=== PATIENT | male | born 1980 | race Caucasian/White ===

== ENCOUNTER 2021-12-22 12:02 | Inpatient (IN) | payer OTHER ==
[2021-12-22 13:04] VITALS: BMI 30.5
[2021-12-22] MEDS ORDERED: ONDANSETRON *ODT* 4 MG TABLET SL PRN (13:16)
[2021-12-22] MEDS ORDERED: MAGNESIUM HYDROX 2400MG/30ML ORAL SUSPENSION 30 ML CUP PO PRN (13:16)
[2021-12-22] MEDS ORDERED: ACETAMINOPHEN 325 MG TABLET (FP) PO PRN ×2 (13:16)
[2021-12-22] MEDS ORDERED: MAG HYDROX/AL HYDROX/SIMETH 30 ML UNIT-DOSE CUP PO PRN (13:16)
[2021-12-22] MEDS ORDERED: METHOCARBAMOL 500 MG TABLET PO PRN (13:16)
[2021-12-22] MEDS ORDERED: MENTHOL/PHENOL 1 EACH UD MM PRN (13:16)
[2021-12-22] MEDS ORDERED: LOPERAMIDE HCL 2 MG CAPSULE PO PRN (13:16)
[2021-12-22] MEDS ORDERED: NICOTINE 10 MG CARTRIDGE (INHALER) IH PRN (13:16)
[2021-12-22] MEDS ORDERED: DICYCLOMINE HCL 10 MG CAPSULE PO PRN (13:16)
[2021-12-22] MEDS ORDERED: IBUPROFEN 400 MG TABLET (FP) PO PRN (13:16)
[2021-12-22] MEDS ORDERED: BISMUTH SUBSALICYLATE 524 MG/30 ML PO PRN (13:16)
[2021-12-22] MEDS ORDERED: MAGNESIUM CITRATE 300 ML BOTTLE PO PRN (13:16)
[2021-12-22] MEDS: NICOTINE 14 MG/24 HOURS TOPICAL PATCH TD SCH (14:18)
[2021-12-22] MEDS: PRENATAL VITAMINS W/ FOLIC ACID TABLET (FP) PO SCH (14:18)
[2021-12-22] MEDS: hydrOXYzine PAMOATE 25 MG CAPSULE (FP) PO SCH ×3 (14:18→22:17)
[2021-12-22] MEDS: diazePAM 5 MG TABLET PO SCH ×2 (17:38→22:17)
[2021-12-22 19:51] LABS: ALBUMIN 3.8 g/dl (3.4-5.0)
[2021-12-22 19:52] LABS: BLOOD UREA NITROGEN 15.6 mg/dL (7-18)
[2021-12-22 19:54] LABS: CREATININE 0.8 mg/dL (0.55-1.3)
[2021-12-22 19:56] LABS: BILIRUBIN,TOTAL 0.8 mg/dL (0.2-1)
[2021-12-22 19:57] LABS: HEMATOCRIT 38.5 % (35.4-49); HEMOGLOBIN 12.6 GM/dL (11.7-16.9); MCH 28.7 pg (25.7-33.7); MCHC 32.7 g/dl (32.0-35.9); MEAN CELL VOLUME 87.7 fl (80-96); MEAN PLT VOLUME 11.9 fl (7.5-11.1); RBC 4.39 M/mm3 (4.00-5.60); RDW 14.3 % (11.9-15.9); WHITE BLOOD COUNT 7.1 K/mm3 (4.0-10.0)
[2021-12-22 19:58] LABS: TOT PROT 7.3 g/dl (6.4-8.2)
[2021-12-22 21:37] LABS: PLATELET COUNT 128 10^3/uL (134-434)
[2021-12-22] MEDS: THIAMINE HCL 100 MG TABLET (FP) PO SCH (22:17)
[2021-12-22] MEDS: MELATONIN 5 MG TABLETS PO SCH (22:17)
[2021-12-23] MEDS: diazePAM 5 MG TABLET PO SCH ×4 (05:31→22:08)
[2021-12-23] MEDS: hydrOXYzine PAMOATE 25 MG CAPSULE (FP) PO SCH ×5 (05:31→22:08)
[2021-12-23] MEDS ORDERED: methaDONE HCL 10 MG TABLET PO SCH (10:00)
[2021-12-23] MEDS: PRENATAL VITAMINS W/ FOLIC ACID TABLET (FP) PO SCH (10:16)
[2021-12-23] MEDS: NICOTINE 14 MG/24 HOURS TOPICAL PATCH TD SCH (10:16)
[2021-12-23] MEDS ORDERED: methaDONE HCL 10 MG TABLET ONE (10:47)
[2021-12-23] MEDS ORDERED: methaDONE HCL 40 MG DISPERSABLE TABLET ONE (10:47)
[2021-12-23] MEDS: methaDONE 40 MG, methaDONE 20 MG PO SCH (10:59)
[2021-12-23] MEDS: THIAMINE HCL 100 MG TABLET (FP) PO SCH (22:08)
[2021-12-23] MEDS: MELATONIN 5 MG TABLETS PO SCH (22:08)
[2021-12-24] MEDS ORDERED: methaDONE HCL 10 MG TABLET ONE (03:50)
[2021-12-24] MEDS ORDERED: methaDONE HCL 40 MG DISPERSABLE TABLET ONE (03:50)
[2021-12-24] MEDS: hydrOXYzine PAMOATE 25 MG CAPSULE (FP) PO SCH ×5 (05:24→22:29)
[2021-12-24] MEDS: diazePAM 5 MG TABLET PO SCH ×3 (05:25→22:30)
[2021-12-24] MEDS: methaDONE 40 MG, methaDONE 20 MG PO SCH (05:25)
[2021-12-24] MEDS: diazePAM 5 MG TABLET PO PRN (10:15)
[2021-12-24] MEDS: PRENATAL VITAMINS W/ FOLIC ACID TABLET (FP) PO SCH (10:15)
[2021-12-24] MEDS: NICOTINE 14 MG/24 HOURS TOPICAL PATCH TD SCH (10:16)
[2021-12-24 12:44] LABS: GLUCOSE,FASTING 98 mg/dL (74-106)
[2021-12-24 12:46] LABS: SGOT/AST 22 U/L (15-37)
[2021-12-24] MEDS: MELATONIN 5 MG TABLETS PO SCH (22:29)
[2021-12-24] MEDS: THIAMINE HCL 100 MG TABLET (FP) PO SCH (22:29)
[2021-12-25 00:07] LABS: SARS-CoV-2 NAA Not Detected (Not Detected)
[2021-12-25] MEDS ORDERED: methaDONE HCL 10 MG TABLET ONE (04:17)
[2021-12-25] MEDS ORDERED: methaDONE HCL 40 MG DISPERSABLE TABLET ONE (04:18)
[2021-12-25] MEDS: methaDONE 40 MG, methaDONE 20 MG PO SCH (05:12)
[2021-12-25] MEDS: diazePAM 5 MG TABLET PO SCH ×2 (05:13→17:50)
[2021-12-25] MEDS: hydrOXYzine PAMOATE 25 MG CAPSULE (FP) PO SCH ×5 (05:13→22:15)
[2021-12-25] MEDS: PRENATAL VITAMINS W/ FOLIC ACID TABLET (FP) PO SCH (10:09)
[2021-12-25] MEDS: NICOTINE 14 MG/24 HOURS TOPICAL PATCH TD SCH (10:10)
[2021-12-25] MEDS: diazePAM 5 MG TABLET PO PRN (10:11)
[2021-12-25] MEDS: MELATONIN 5 MG TABLETS PO SCH (22:15)
[2021-12-25] MEDS: THIAMINE HCL 100 MG TABLET (FP) PO SCH (22:15)
[2021-12-26] MEDS ORDERED: methaDONE HCL 10 MG TABLET ONE (04:35)
[2021-12-26] MEDS ORDERED: methaDONE HCL 40 MG DISPERSABLE TABLET ONE (04:36)
[2021-12-26] MEDS: hydrOXYzine PAMOATE 25 MG CAPSULE (FP) PO SCH (05:26)
[2021-12-26] MEDS: methaDONE 40 MG, methaDONE 20 MG PO SCH (05:27)
[2021-12-26] MEDS ORDERED: diazePAM 5 MG TABLET PO ONE (06:00)
[2021-12-26 09:07] VITALS: BP 120/58; PULSE 82; TEMP 97.7
== END 2021-12-26 09:30 | disposition home or self-care (01) | DRG 773 ==
LOC: YASAS 12:02 → Y3N 13:33
PROVIDERS: ADMIT Allergy & Immunology; ATTEND Allergy & Immunology
PROC: HZ2ZZZZ Detoxification Services for Substance Abuse Treatment (ICD-10-PCS; principal; 2021-12-22)
DX: F13.230 Sedative, hypnotic or anxiolytic dependence with withdrawal, uncomplicated (principal); F11.20 Opioid dependence, uncomplicated; F17.210 Nicotine dependence, cigarettes, uncomplicated; F41.9 Anxiety disorder, unspecified; F32.A Depression, unspecified; B18.2 Chronic viral hepatitis C; R73.9 Hyperglycemia, unspecified; Z56.0 Unemployment, unspecified; Z59.01 Sheltered homelessness
CPT/HCPCS: 36415; 80053; 82947; 83036; 84450; 85027; 86780; 93005; 93010; C9803-CS; U0003; U0005

== ENCOUNTER 2022-11-23 19:46 | Inpatient (IN) | payer OTHER ==
[2022-11-23 20:55] VITALS: BMI 31.5
[2022-11-23] MEDS ORDERED: LOPERAMIDE HCL 2 MG CAPSULE PO PRN (21:38)
[2022-11-23] MEDS ORDERED: IBUPROFEN 400 MG TABLET (FP) PO PRN (21:38)
[2022-11-23] MEDS ORDERED: NALOXONE HCL (KLOXXADO) 8 MG SPRAY NS PRN (21:38)
[2022-11-23] MEDS ORDERED: MAGNESIUM HYDROX 2400MG/30ML ORAL SUSPENSION 30 ML CUP PO PRN (21:38)
[2022-11-23] MEDS ORDERED: DICYCLOMINE HCL 10 MG CAPSULE PO PRN (21:38)
[2022-11-23] MEDS ORDERED: NICOTINE POLACRILEX 2 MG GUM BUC PRN (21:38)
[2022-11-23] MEDS ORDERED: IBUPROFEN 600 MG TABLET (FP) PO PRN (21:38)
[2022-11-23] MEDS ORDERED: BISMUTH SUBSALICYLATE 524 MG/30 ML PO PRN (21:38)
[2022-11-23] MEDS ORDERED: ONDANSETRON *ODT* 4 MG TABLET SL PRN (21:38)
[2022-11-23] MEDS ORDERED: BENZOCAINE/MENTHOL (CHLORASEPTIC ) LOZENGE MM PRN (21:38)
[2022-11-23] MEDS ORDERED: MAG HYDROX/AL HYDROX/SIMETH 30 ML UNIT-DOSE CUP PO PRN (21:38)
[2022-11-23] MEDS ORDERED: POLYETHYLENE GLYCOL (HEALTHYLAX) 3350 17 GM PACKET PO PRN (21:38)
[2022-11-23] MEDS ORDERED: ACETAMINOPHEN 325 MG TABLET (FP) PO PRN ×2 (21:38)
[2022-11-23] MEDS ORDERED: MELATONIN 5 MG TABLETS ONE (23:07)
[2022-11-23] MEDS: THIAMINE HCL 100 MG TABLET (FP) PO SCH (23:10)
[2022-11-23] MEDS: MELATONIN 5 MG TABLETS PO SCH (23:10)
[2022-11-24] MEDS ORDERED: diazePAM 5 MG TABLET PO PRN (00:22)
[2022-11-24] MEDS: diazePAM 5 MG TABLET PO SCH ×4 (06:00→22:55)
[2022-11-24] MEDS ORDERED: methaDONE HCL 10 MG TABLET PO SCH (09:15)
[2022-11-24] MEDS: methaDONE 80 MG, methaDONE 20 MG PO SCH (09:47)
[2022-11-24] MEDS: PRENATAL VITAMINS W/ FOLIC ACID TABLET (FP) PO SCH (09:52)
[2022-11-24] MEDS: NICOTINE 14 MG/24 HOURS TOPICAL PATCH TD SCH (09:52)
[2022-11-24 11:34] LABS: ALBUMIN 3.6 g/dl (3.4-5.0); BLOOD UREA NITROGEN 21.5 mg/dL (7-18); CALCIUM 9.4 mg/dL (8.5-10.1)
[2022-11-24 11:37] LABS: CREATININE 0.9 mg/dL (0.55-1.3)
[2022-11-24 11:39] LABS: BILIRUBIN,TOTAL 0.4 mg/dL (0.2-1); TOT PROT 7.1 g/dl (6.4-8.2)
[2022-11-24 11:44] LABS: HEMATOCRIT 40.5 % (35.4-49); HEMOGLOBIN 13.5 GM/dL (11.7-16.9); MCH 28.5 pg (25.7-33.7); MCHC 33.3 g/dl (32.0-35.9); MEAN CELL VOLUME 85.6 fl (80-96); MEAN PLT VOLUME 10.2 fl (7.5-11.1); PLATELET COUNT 216 10^3/uL (134-434); RBC 4.73 M/mm3 (4.00-5.60); RDW 14.6 % (11.9-15.9); WHITE BLOOD COUNT 7.1 K/mm3 (4.0-10.0)
[2022-11-24] MEDS: THIAMINE HCL 100 MG TABLET (FP) PO SCH (23:03)
[2022-11-24] MEDS: MELATONIN 5 MG TABLETS PO SCH (23:03)
[2022-11-25] MEDS: methaDONE 80 MG, methaDONE 20 MG PO SCH (06:00)
[2022-11-25] MEDS: diazePAM 5 MG TABLET PO SCH ×3 (06:00→22:34)
[2022-11-25] MEDS: PRENATAL VITAMINS W/ FOLIC ACID TABLET (FP) PO SCH (10:57)
[2022-11-25] MEDS: NICOTINE 14 MG/24 HOURS TOPICAL PATCH TD SCH (10:57)
[2022-11-25] MEDS: THIAMINE HCL 100 MG TABLET (FP) PO SCH (22:34)
[2022-11-25] MEDS: MELATONIN 5 MG TABLETS PO SCH (22:34)
[2022-11-26] MEDS: diazePAM 5 MG TABLET PO SCH ×2 (06:24→17:55)
[2022-11-26] MEDS: methaDONE 80 MG, methaDONE 20 MG PO SCH (06:24)
[2022-11-26] MEDS: PRENATAL VITAMINS W/ FOLIC ACID TABLET (FP) PO SCH (09:41)
[2022-11-26] MEDS: NICOTINE 14 MG/24 HOURS TOPICAL PATCH TD SCH (09:42)
[2022-11-26] MEDS: THIAMINE HCL 100 MG TABLET (FP) PO SCH (23:14)
[2022-11-26] MEDS: MELATONIN 5 MG TABLETS PO SCH (23:14)
[2022-11-27] MEDS ORDERED: diazePAM 5 MG TABLET PO ONE (06:00)
[2022-11-27] MEDS: methaDONE 80 MG, methaDONE 20 MG PO SCH (06:02)
[2022-11-27] MEDS: PRENATAL VITAMINS W/ FOLIC ACID TABLET (FP) PO SCH (11:12)
[2022-11-27] MEDS: NICOTINE 14 MG/24 HOURS TOPICAL PATCH TD SCH (11:16)
[2022-11-27 17:57] VITALS: BP 143/74; PULSE 61; RESP 18; TEMP 97.6
== END 2022-11-27 17:36 | disposition home or self-care (01) | DRG 773 ==
LOC: YASAS 19:46 → Y6N 21:46
PROVIDERS: ADMIT Allergy & Immunology; ATTEND Surgery
PROC: HZ2ZZZZ Detoxification Services for Substance Abuse Treatment (ICD-10-PCS; principal; 2022-11-23)
DX: F13.230 Sedative, hypnotic or anxiolytic dependence with withdrawal, uncomplicated (principal); F14.20 Cocaine dependence, uncomplicated; F11.20 Opioid dependence, uncomplicated; F17.210 Nicotine dependence, cigarettes, uncomplicated; F33.1 Major depressive disorder, recurrent, moderate; F19.282 Other psychoactive substance dependence with psychoactive substance-induced sleep disorder; F19.280 Other psychoactive substance dependence with psychoactive substance-induced anxiety disorder; F19.24 Other psychoactive substance dependence with psychoactive substance-induced mood disorder; U07.1 COVID-19; M54.50 Low back pain, unspecified; G89.29 Other chronic pain; Z86.19 Personal history of other infectious and parasitic diseases; Z59.00 Homelessness unspecified
CPT/HCPCS: 36415; 80053; 85027; 86780; C9803-CS; U0003; U0005

== ENCOUNTER 2023-01-19 15:39 | Inpatient (IN) | payer OTHER ==
[2023-01-19 16:41] VITALS: BMI 30.1
[2023-01-19] MEDS ORDERED: DICYCLOMINE HCL 10 MG CAPSULE PO PRN (20:15)
[2023-01-19] MEDS ORDERED: IBUPROFEN 600 MG TABLET (FP) PO PRN (20:15)
[2023-01-19] MEDS ORDERED: diazePAM 5 MG TABLET PO PRN (20:15)
[2023-01-19] MEDS ORDERED: BISMUTH SUBSALICYLATE 524 MG/30 ML PO PRN (20:15)
[2023-01-19] MEDS ORDERED: MAGNESIUM HYDROX 2400MG/30ML ORAL SUSPENSION 30 ML CUP PO PRN (20:15)
[2023-01-19] MEDS ORDERED: NALOXONE HCL (KLOXXADO) 8 MG SPRAY NS PRN (20:15)
[2023-01-19] MEDS ORDERED: guaiFENesin 600 MG TABLET.ER (FP) PO PRN (20:15)
[2023-01-19] MEDS ORDERED: BENZOCAINE/MENTHOL (CHLORASEPTIC ) LOZENGE MM PRN (20:15)
[2023-01-19] MEDS ORDERED: diazePAM 5 MG TABLET PO ONE (20:15)
[2023-01-19] MEDS ORDERED: ONDANSETRON *ODT* 4 MG TABLET SL PRN (20:15)
[2023-01-19] MEDS ORDERED: LOPERAMIDE HCL 2 MG CAPSULE PO PRN (20:15)
[2023-01-19] MEDS ORDERED: MAG HYDROX/AL HYDROX/SIMETH 30 ML UNIT-DOSE CUP PO PRN (20:15)
[2023-01-19] MEDS ORDERED: IBUPROFEN 400 MG TABLET (FP) PO PRN (20:15)
[2023-01-19] MEDS ORDERED: NALOXONE HCL 0.4 MG/ML VIAL IM PRN (20:15)
[2023-01-19] MEDS ORDERED: BENZONATATE 200 MG CAPSULE PO PRN (20:15)
[2023-01-19] MEDS ORDERED: POLYETHYLENE GLYCOL (HEALTHYLAX) 3350 17 GM PACKET PO PRN (20:15)
[2023-01-19] MEDS ORDERED: NICOTINE POLACRILEX 2 MG GUM BUC PRN (20:15)
[2023-01-19] MEDS ORDERED: diazePAM 5 MG TABLET ONE (20:38)
[2023-01-19] MEDS: THIAMINE HCL 100 MG TABLET (FP) PO SCH (22:59)
[2023-01-19] MEDS: diazePAM 5 MG TABLET PO SCH (22:59)
[2023-01-19] MEDS: MELATONIN 5 MG TABLETS PO SCH (22:59)
[2023-01-20] MEDS: diazePAM 5 MG TABLET PO SCH ×4 (05:37→22:11)
[2023-01-20] MEDS: methaDONE HCL 40 MG DISPERSABLE TABLET PO SCH (09:28)
[2023-01-20] MEDS: PRENATAL VITAMINS W/ FOLIC ACID TABLET (FP) PO SCH (10:09)
[2023-01-20] MEDS: NICOTINE 14 MG/24 HOURS TOPICAL PATCH TD SCH (10:11)
[2023-01-20 11:39] LABS: HEMATOCRIT 38.1 % (35.4-49); HEMOGLOBIN 13.3 GM/dL (11.7-16.9); MCH 29.7 pg (25.7-33.7); MCHC 34.9 g/dl (32.0-35.9); MEAN CELL VOLUME 85.1 fl (80-96); MEAN PLT VOLUME 10.4 fl (7.5-11.1); PLATELET COUNT 193 10^3/uL (134-434); RBC 4.48 M/mm3 (4.00-5.60); WHITE BLOOD COUNT 5.2 K/mm3 (4.0-10.0)
[2023-01-20 11:55] LABS: POTASSIUM 4.4 mmol/L (3.5-5.1)
[2023-01-20 12:21] LABS: ALBUMIN 3.6 g/dl (3.4-5.0); BLOOD UREA NITROGEN 16.6 mg/dL (7-18)
[2023-01-20 12:22] LABS: CALCIUM 9.4 mg/dL (8.5-10.1)
[2023-01-20 12:23] LABS: BILIRUBIN,TOTAL 0.4 mg/dL (0.2-1); TOT PROT 7.2 g/dl (6.4-8.2)
[2023-01-20] MEDS: hydrOXYzine PAMOATE 25 MG CAPSULE (FP) PO PRN (14:26)
[2023-01-20] MEDS: THIAMINE HCL 100 MG TABLET (FP) PO SCH (21:49)
[2023-01-20] MEDS: MELATONIN 5 MG TABLETS PO SCH (21:49)
[2023-01-20] MEDS: cloNIDine HCL 0.1 MG TABLET PO PRN (22:25)
[2023-01-20] MEDS: ALBUTEROL SO4 HFA INHALER IH PRN (22:25)
[2023-01-20 23:47] LABS: PH,URINE 7.5 (5.0-8.0); URINE APPEARANCE CLEAR; URINE BILIRUBIN NEGATIVE (NEGATIVE); URINE COLOR YELLOW; URINE GLUCOSE (UA) NEGATIVE (NEGATIVE); URINE KETONE NEGATIVE (NEGATIVE); URINE LEUK ESTERASE NEGATIVE (NEGATIVE); URINE NITRITE NEGATIVE (NEGATIVE); URINE PROTEIN NEGATIVE (NEGATIVE)
[2023-01-21] MEDS: methaDONE HCL 40 MG DISPERSABLE TABLET PO SCH (05:33)
[2023-01-21] MEDS: diazePAM 5 MG TABLET PO SCH ×3 (05:33→22:51)
[2023-01-21] MEDS: ALBUTEROL SO4 HFA INHALER IH PRN ×4 (08:05→20:51)
[2023-01-21] MEDS: NICOTINE 14 MG/24 HOURS TOPICAL PATCH TD SCH (10:19)
[2023-01-21] MEDS: PRENATAL VITAMINS W/ FOLIC ACID TABLET (FP) PO SCH (10:20)
[2023-01-21] MEDS: hydrOXYzine PAMOATE 25 MG CAPSULE (FP) PO PRN ×2 (10:21→18:24)
[2023-01-21] MEDS: ACETAMINOPHEN 325 MG TABLET (FP) PO PRN (14:51)
[2023-01-21] MEDS: THIAMINE HCL 100 MG TABLET (FP) PO SCH (22:51)
[2023-01-21] MEDS: cloNIDine HCL 0.1 MG TABLET PO PRN (22:51)
[2023-01-21] MEDS: MELATONIN 5 MG TABLETS PO SCH (22:51)
[2023-01-22] MEDS: ALBUTEROL SO4 HFA INHALER IH PRN (03:08)
[2023-01-22] MEDS: ACETAMINOPHEN 325 MG TABLET (FP) PO PRN (03:10)
[2023-01-22] MEDS: methaDONE HCL 40 MG DISPERSABLE TABLET PO SCH (05:22)
[2023-01-22] MEDS ORDERED: diazePAM 5 MG TABLET PO SCH (06:00)
[2023-01-22 10:14] VITALS: BP 151/83; PULSE 84; RESP 18; TEMP 96.9
[2023-01-23] MEDS ORDERED: diazePAM 5 MG TABLET PO ONE (06:00)
== END 2023-01-22 10:10 | disposition home or self-care (01) | DRG 773 ==
LOC: YASAS 15:39 → Y3N 22:32
PROVIDERS: ADMIT Allergy & Immunology; ATTEND Surgery
PROC: HZ2ZZZZ Detoxification Services for Substance Abuse Treatment (ICD-10-PCS; principal; 2023-01-19)
DX: F11.23 Opioid dependence with withdrawal (principal); F10.230 Alcohol dependence with withdrawal, uncomplicated; F14.20 Cocaine dependence, uncomplicated; F17.210 Nicotine dependence, cigarettes, uncomplicated; F19.280 Other psychoactive substance dependence with psychoactive substance-induced anxiety disorder; F19.24 Other psychoactive substance dependence with psychoactive substance-induced mood disorder; F41.9 Anxiety disorder, unspecified; F32.A Depression, unspecified; I10 Essential (primary) hypertension; J45.909 Unspecified asthma, uncomplicated; M54.50 Low back pain, unspecified; G89.29 Other chronic pain; Z86.19 Personal history of other infectious and parasitic diseases; Z87.820 Personal history of traumatic brain injury
CPT/HCPCS: 36415; 80053; 81003; 83036; 85027; 86780; 93005; 93010; C9803-CS; U0003; U0005

== ENCOUNTER 2023-03-08 17:25 | Inpatient (IN) | payer OTHER ==
[2023-03-08 19:11] VITALS: BMI 30.1
[2023-03-08] MEDS ORDERED: NALOXONE HCL (KLOXXADO) 8 MG SPRAY NS PRN (23:36)
[2023-03-08] MEDS ORDERED: DICYCLOMINE HCL 10 MG CAPSULE PO PRN (23:36)
[2023-03-08] MEDS ORDERED: BISMUTH SUBSALICYLATE 524 MG/30 ML PO PRN (23:36)
[2023-03-08] MEDS ORDERED: BENZONATATE 200 MG CAPSULE PO PRN (23:36)
[2023-03-08] MEDS ORDERED: POLYETHYLENE GLYCOL (HEALTHYLAX) 3350 17 GM PACKET PO PRN (23:36)
[2023-03-08] MEDS ORDERED: LOPERAMIDE HCL 2 MG CAPSULE PO PRN (23:36)
[2023-03-08] MEDS ORDERED: NALOXONE HCL 0.4 MG/ML VIAL IM PRN (23:36)
[2023-03-08] MEDS ORDERED: MAG HYDROX/AL HYDROX/SIMETH 30 ML UNIT-DOSE CUP PO PRN (23:36)
[2023-03-08] MEDS ORDERED: MAGNESIUM HYDROX 2400MG/30ML ORAL SUSPENSION 30 ML CUP PO PRN (23:36)
[2023-03-08] MEDS ORDERED: P-EPHED 60MG/TRIPROLIDI 2.5MG TABLET PO PRN (23:36)
[2023-03-08] MEDS ORDERED: BENZOCAINE/MENTHOL (CHLORASEPTIC ) LOZENGE MM PRN (23:36)
[2023-03-08] MEDS ORDERED: ACETAMINOPHEN 325 MG TABLET (FP) PO PRN (23:36)
[2023-03-08] MEDS ORDERED: NICOTINE 10 MG CARTRIDGE (INHALER) IH PRN (23:36)
[2023-03-08] MEDS ORDERED: ONDANSETRON *ODT* 4 MG TABLET SL PRN (23:36)
[2023-03-08] MEDS ORDERED: NICOTINE POLACRILEX 2 MG GUM BUC PRN (23:36)
[2023-03-08] MEDS ORDERED: IBUPROFEN 600 MG TABLET (FP) PO PRN (23:36)
[2023-03-08] MEDS ORDERED: guaiFENesin 600 MG TABLET.ER (FP) PO PRN (23:36)
[2023-03-08] MEDS ORDERED: IBUPROFEN 400 MG TABLET (FP) PO PRN (23:36)
[2023-03-09] MEDS ORDERED: hydrOXYzine PAMOATE 25 MG CAPSULE (FP) PO ONE (02:59)
[2023-03-09] MEDS: hydrOXYzine PAMOATE 25 MG CAPSULE (FP) PO PRN (03:00)
[2023-03-09] MEDS: diazePAM 5 MG TABLET PO SCH ×5 (03:14→22:19)
[2023-03-09] MEDS: ALBUTEROL SO4 HFA INHALER IH SCH ×7 (03:16→22:36)
[2023-03-09] MEDS: PRENATAL VITAMINS W/ FOLIC ACID TABLET (FP) PO SCH (10:01)
[2023-03-09] MEDS: METHOCARBAMOL 500 MG TABLET PO PRN (10:02)
[2023-03-09] MEDS: methaDONE HCL 40 MG DISPERSABLE TABLET PO SCH (13:13)
[2023-03-09] MEDS: GABAPENTIN 300 MG CAPSULE PO SCH (22:18)
[2023-03-09] MEDS: THIAMINE HCL 100 MG TABLET (FP) PO SCH (22:18)
[2023-03-09] MEDS: MELATONIN 5 MG TABLETS PO SCH (22:19)
[2023-03-10] MEDS: ALBUTEROL SO4 HFA INHALER IH SCH ×6 (03:30→22:40)
[2023-03-10] MEDS: diazePAM 5 MG TABLET PO SCH ×3 (05:30→22:10)
[2023-03-10] MEDS: methaDONE HCL 40 MG DISPERSABLE TABLET PO SCH (05:31)
[2023-03-10] MEDS: METHOCARBAMOL 500 MG TABLET PO PRN (10:41)
[2023-03-10] MEDS: PRENATAL VITAMINS W/ FOLIC ACID TABLET (FP) PO SCH (10:41)
[2023-03-10] MEDS: hydrOXYzine PAMOATE 25 MG CAPSULE (FP) PO PRN (10:41)
[2023-03-10 10:58] LABS: POTASSIUM 4.5 mmol/L (3.5-5.1)
[2023-03-10 11:04] LABS: CALCIUM 9.3 mg/dL (8.5-10.1)
[2023-03-10 11:06] LABS: ALBUMIN 3.6 g/dl (3.4-5.0); CREATININE 0.9 mg/dL (0.55-1.3); HEMATOCRIT 40.6 % (35.4-49); HEMOGLOBIN 13.1 GM/dL (11.7-16.9); MCH 28.3 pg (25.7-33.7); MCHC 32.1 g/dl (32.0-35.9); MEAN CELL VOLUME 88.1 fl (80-96); MEAN PLT VOLUME 10.6 fl (7.5-11.1); PLATELET COUNT 202 10^3/uL (134-434); RBC 4.62 M/mm3 (4.00-5.60); RDW 14.2 % (11.9-15.9); WHITE BLOOD COUNT 6.3 K/mm3 (4.0-10.0)
[2023-03-10 11:07] LABS: BILIRUBIN,TOTAL 0.3 mg/dL (0.2-1)
[2023-03-10] MEDS: THIAMINE HCL 100 MG TABLET (FP) PO SCH (22:10)
[2023-03-10] MEDS: GABAPENTIN 300 MG CAPSULE PO SCH (22:10)
[2023-03-10] MEDS: MELATONIN 5 MG TABLETS PO SCH (22:10)
[2023-03-11] MEDS: ALBUTEROL SO4 HFA INHALER IH SCH ×6 (03:52→23:12)
[2023-03-11] MEDS: diazePAM 5 MG TABLET PO SCH ×2 (05:28→17:07)
[2023-03-11] MEDS: methaDONE HCL 40 MG DISPERSABLE TABLET PO SCH (05:28)
[2023-03-11] MEDS: PRENATAL VITAMINS W/ FOLIC ACID TABLET (FP) PO SCH (10:21)
[2023-03-11] MEDS: hydrOXYzine PAMOATE 25 MG CAPSULE (FP) PO PRN ×2 (10:21→22:16)
[2023-03-11] MEDS: METHOCARBAMOL 500 MG TABLET PO PRN ×2 (10:21→22:16)
[2023-03-11] MEDS: MELATONIN 5 MG TABLETS PO SCH (22:16)
[2023-03-11] MEDS: THIAMINE HCL 100 MG TABLET (FP) PO SCH (22:16)
[2023-03-11] MEDS: GABAPENTIN 300 MG CAPSULE PO SCH (22:16)
[2023-03-12] MEDS: ALBUTEROL SO4 HFA INHALER IH SCH ×2 (03:02→06:44)
[2023-03-12] MEDS: methaDONE HCL 40 MG DISPERSABLE TABLET PO SCH (05:23)
[2023-03-12] MEDS ORDERED: diazePAM 5 MG TABLET PO ONE (06:00)
[2023-03-12 06:39] VITALS: BP 117/71; PULSE 65; RESP 16; TEMP 97.7
== END 2023-03-12 09:07 | disposition home or self-care (01) | DRG 773 ==
LOC: YASAS 17:25 → Y6N 23:54
PROVIDERS: ADMIT Allergy & Immunology; ATTEND Surgery
PROC: HZ2ZZZZ Detoxification Services for Substance Abuse Treatment (ICD-10-PCS; principal; 2023-03-08)
DX: F13.230 Sedative, hypnotic or anxiolytic dependence with withdrawal, uncomplicated (principal); F11.20 Opioid dependence, uncomplicated; F14.20 Cocaine dependence, uncomplicated; F17.210 Nicotine dependence, cigarettes, uncomplicated; F39 Unspecified mood [affective] disorder; F19.282 Other psychoactive substance dependence with psychoactive substance-induced sleep disorder; F19.280 Other psychoactive substance dependence with psychoactive substance-induced anxiety disorder; J45.20 Mild intermittent asthma, uncomplicated; M54.50 Low back pain, unspecified; G89.29 Other chronic pain; Z86.19 Personal history of other infectious and parasitic diseases; Z87.820 Personal history of traumatic brain injury; Z56.0 Unemployment, unspecified; Z59.01 Sheltered homelessness
CPT/HCPCS: 36415; 80053; 85027; 86780; 87635